=== PATIENT | female | born 1995 | race Caucasian/White ===

== ENCOUNTER 2018-10-23 01:15 | Emergency (ER) | payer OTHER, SELFPAY ==
--- NOTE | 2018-10-23 01:45 | ER ---
Nurse's Notes [facility] Name: Giana Costa Age: 23 yrs Sex: Female : 1995 Arrival Date: 10/23/2018 Time: 01:17 Bed Waiting Private MD: Diagnosis: ED Course: 10/23 01:17 Patient arrived in ED. am2 01:43 Patient's name was called from ER lobby. No response. Unable to locate patient. Will bb disposition as left without being seen by a provider. Administered Medications: No medications were administered Outcome: 01:44 Patient left the ED. bb Signatures: Subha Stubbs RN RN Nehal Blair am2
== END 2018-10-23 01:44 | disposition left against medical advice (07) ==
LOC: ER 01:15
DX: Z53.21 Procedure and treatment not carried out due to patient leaving prior to being seen by health care provider (principal)

== ENCOUNTER 2021-03-26 23:32 | Emergency (ER) | payer SELFPAY ==
--- NOTE | 2021-03-27 00:37 | EDPHYS ---
Physician Documentation [facility] Name: Giana Costa Age: 25 yrs Sex: Female : 1995 Arrival Date: 03/26/2021 Time: 23:34 Bed 24 Private MD: ED Physician Bari Cardozo HPI: 03/27 00:22 This 25 yrs old Female presents to ER via Ambulatory with complaints of Ankle kb Injury. 00:22 The patient has not recently seen a physician. kb 00:22 The patient presents with an injury, pain, swelling, tenderness. The complaints affect kb the left foot. Context: The problem was sustained at home, resulted from the patient tripping, Mechanism of Injury: Inversion the patient can fully bear weight, the patient is able to ambulate. Onset: The symptoms/episode began/occurred today. Modifying factors: The symptoms are alleviated by nothing, the symptoms are aggravated by movement. Associated signs and symptoms: Pertinent positives: swelling. Severity of symptoms: At their worst the symptoms were moderate, in the emergency department the symptoms are unchanged. The patient has not experienced similar symptoms in the past. RN COMPLEX CARE: 03/26 23:56 LMP 03/20/2021 bb Historical: - Allergies: 23:56 No Known Allergies; bb - Home Meds: 23:56 None [Active]; bb - PMHx: 23:56 None; bb - PSHx: 23:56 None; bb - Immunization history:: Adult Immunizations up to date. - Social history:: Smoking status: Patient denies any tobacco usage or history of. ROS: 03/27 00:20 Constitutional: Negative for fever, chills, and weight loss, Neuro: Negative for kb headache, weakness, numbness, tingling, and seizure. MS/extremity: Positive for ecchymosis, pain, swelling, tenderness, of the dorsum of left foot. Skin: Positive for ecchymosis, swelling, of the dorsum of left foot. Exam: 00:21 Constitutional: This is a well developed, well nourished patient who is awake, alert, kb and in no acute distress. Head/Face: Normocephalic, atraumatic. ENT: Moist Mucous membranes Respiratory: Respirations even and unlabored. No increased work of breathing, no retractions or nasal flaring. Skin: Warm, dry with normal turgor. Normal color. Neuro: Awake and alert, GCS 15, oriented to person, place, time, and situation. Moves all extremities. Normal gait. Psych: Awake, alert, with orientation to person, place and time. Behavior, mood, and affect are within normal limits. 00:21 Musculoskeletal/extremity: Extremities: grossly normal except: noted in the dorsum of left foot: ecchymosis, pain, swelling, tenderness, ROM: no acute changes, Pulses: Sensation intact. Weight bearing: able to fully bear weight. Vital Signs: 03/26 23:55 BP 121 / 81; Pulse 100; Resp 16 S; Temp 97.5(O); Pulse Ox 98% on R/A; Weight 94.35 kg bb (R); Height 5 ft. 7 in. (170.18 cm) (R); Pain 7/10; 23:55 Body Mass Index 32.58 (94.35 kg, 170.18 cm) bb MDM: 03/27 00:00 Patient medically screened. [facility] 00:20 Data reviewed: vital signs, nurses notes. Data interpreted: Pulse oximetry: on room air kb is 98 %. Interpretation: normal. Counseling: I had a detailed discussion with the patient and/or guardian regarding: the historical points, exam findings, and any diagnostic results supporting the discharge/admit diagnosis, radiology results, the need for outpatient follow up, a orthopedic surgeon, to return to the emergency department if symptoms worsen or persist or if there are any questions or concerns that arise at home. 03/27 00:01 Order name: Foot Left 3 View XRAY kb Administered Medications: No medications were administered Disposition Summary: 03/27/21 00:36 Discharge Ordered Location: Home kb Condition: Stable kb Diagnosis - Other sprain of left foot kb Followup: kb - With: Emergency Department - When: As needed - Reason: Worsening of condition Followup: kb - With: Private Physician - When: 2 - 3 days - Reason: Recheck today's complaints, Continuance of care, Re-evaluation by your physician Discharge Instructions: - Discharge Summary Sheet kb - Foot Sprain kb Forms: - Medication Reconciliation Form kb - Thank You Letter kb - Antibiotic Education kb - Work release form kb - Prescription Opioid Use kb Addendum: 03/30/2021 07:35 Co-signature as Attending Physician, Bari Cardozo MD I agree with the assessment and c schmidt plan of care. Signatures: Dispatcher [employer] EDFabiana Dye, RN GYN-C RN GYN-Ckb Bari Cardozo MD MD cha Ballard, Brenda, RN RN bb Corrections: (The following items were deleted from the chart) 03/26 23:57 23:56 PMHx: miscarriage (February 2015); bb lisa 03/27 00:19 03/26 23:57 Ankle Left 3 View+RAD.RAD.BRZ ordered. EDMS EDMS
--- NOTE | 2021-03-27 00:37 | ER ---
Nurse's Notes [facility] Name: Giana Costa Age: 25 yrs Sex: Female : 1995 Arrival Date: 03/26/2021 Time: 23:34 Bed 24 Private MD: Diagnosis: Other sprain of left foot Presentation: 03/26 23:55 Chief complaint: Patient states: she tripped and fell this morning injuring her left bb ankle which is swollen and painful denies LOC. Coronavirus screen: At this time, the client does not indicate any symptoms associated with coronavirus-19. Ebola Screen: No symptoms or risks identified at this time. Initial Sepsis Screen: Does the patient meet any 2 criteria? No. Patient's initial sepsis screen is negative. Does the patient have a suspected source of infection? No. Patient's initial sepsis screen is negative. Risk Assessment: Do you want to hurt yourself or someone else? Patient reports no desire to harm self or others. Onset of symptoms was March 26, 2021. 23:55 Method Of Arrival: Ambulatory bb 23:55 Acuity: MARY 4 bb Triage Assessment: 23:56 General: Appears in no apparent distress. uncomfortable, Behavior is calm, cooperative. bb Pain: Complains of pain in left ankle and foot Pain currently is 7 out of 10 on a pain scale. Neuro: Level of Consciousness is awake, alert, obeys commands, Oriented to person, place, time, situation. Cardiovascular: Capillary refill < 3 seconds Patient's skin is warm and dry. Respiratory: Respiratory effort is even, unlabored, Respiratory pattern is regular. GI: No signs and/or symptoms were reported involving the gastrointestinal system. Derm: Skin is pink, warm \T\ dry. Musculoskeletal: Capillary refill < 3 seconds, Reports pain in left ankle and foot. NURSE PRACTITIONER HOSPITALIST: 23:56 LMP 03/20/2021 bb Historical: - Allergies: 23:56 No Known Allergies; bb - Home Meds: 23:56 None [Active]; bb - PMHx: 23:56 None; bb - PSHx: 23:56 None; bb - Immunization history:: Adult Immunizations up to date. - Social history:: Smoking status: Patient denies any tobacco usage or history of. Screenin:58 Abuse screen: Denies threats or abuse. Nutritional screening: No deficits noted. bb Tuberculosis screening: No symptoms or risk factors identified. Fall Risk None identified. Assessment: 23:58 Reassessment: No changes from previously documented assessment. Patient is alert, bb oriented x 3, equal unlabored respirations, skin warm/dry/pink. see triage assessment. Vital Signs: 23:55 BP 121 / 81; Pulse 100; Resp 16 S; Temp 97.5(O); Pulse Ox 98% on R/A; Weight 94.35 kg bb (R); Height 5 ft. 7 in. (170.18 cm) (R); Pain 7/10; 23:55 Body Mass Index 32.58 (94.35 kg, 170.18 cm) bb ED Course: 23:34 Patient arrived in ED. cf2 23:52 Fab[facility] Jack [facility]C [facility]. kb 23:52 Bari Cardozo MD is Attending Physician. kb 23:56 Triage completed. bb 23:56 Arm band placed on Patient placed in an exam room, on a stretcher, on pulse oximetry. bb 23:58 Patient has correct armband on for positive identification. Bed in low position. Call bb light in reach. 07 00:00 Raymond Trivedi, RN is Primary Nurse. em 00:46 No provider procedures requiring assistance completed. Patient did not have IV access em during this emergency room visit. 01:23 Foot Left 3 View XRAY In Process Unspecified. EDMS Administered Medications: No medications were administered Outcome: 00:36 Discharge ordered by MD. kb 00:46 Discharged to home ambulatory. em 00:46 Condition: stable 00:46 Discharge instructions given to patient, Instructed on discharge instructions, follow up and referral plans. Demonstrated understanding of instructions, follow-up care. 00:47 Patient left the ED. em Signatures: Dispatcher [employer] EDMS Fabiana Jack FNP-C FNP-Ckb Munoz, Edgar RN CLAY em Subha Stubbs RN RN bb Estella Denney cf2 Corrections: (The following items were deleted from the chart) 03/26 23:57 23:56 PMHx: miscarriage (February 2015); lisa gonzalez
[2021-03-27 00:52] VITALS: BP 121/81; TEMP 97.5; O2SAT 98
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
== END 2021-03-27 00:47 | disposition home or self-care (01) ==
LOC: ER 23:32
DX: S93.692A Other sprain of left foot, initial encounter (principal); W01.0XXA Fall on same level from slipping, tripping and stumbling without subsequent striking against object, initial encounter; Y92.009 Unspecified place in unspecified non-institutional (private) residence as the place of occurrence of the external cause
CPT/HCPCS: 99283

== ENCOUNTER 2022-05-17 19:57 | Emergency (ER) | payer SELFPAY ==
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
[2022-05-17] MEDS ORDERED: CYCLOBENZAPRINE 10 MG TAB ONE (21:20)
[2022-05-17] MEDS ORDERED: predniSONE 20 MG TAB ONE (21:20)
[2022-05-17] MEDS ORDERED: FAMOTIDINE 20 MG TAB ONE (21:21)
[2022-05-17 23:03] VITALS: TEMP 98.1
[2022-05-17 23:05] VITALS: BP 112/64; O2SAT 98
== END 2022-05-17 21:56 | disposition home or self-care (01) ==
LOC: ER 19:57
DX: S46.111A Strain of muscle, fascia and tendon of long head of biceps, right arm, initial encounter (principal)
CPT/HCPCS: 99284; J7512

== ENCOUNTER 2023-02-27 15:51 | Emergency (ER) | payer OTHER, SELFPAY ==
--- OUTSIDE RECORDS SUMMARY | 2023-02-27 15:53 | XMS REPORT | Continuity of Care Document ---
:1995 Author Organization [facility] t Address [address] [place] [address] Care Team Providers Name Role Phone Phillip VALENTINE, [facility] Primary Care Physician [phone] Problems This patient has no known problems. Allergies, Adverse Reactions, Alerts This patient has no known allergies or adverse reactions. Medications Ordered Filled Start Stop Current Ordering Indication Dosage Frequency Signature Comments Components Source Medication Medication Date Date Medication? Clinician (SIG) Name Name TAKE 4 2021-09 No TABLETS BY 0-18 MOUTH 00:00: ONE DOSE 00 TAKE 1 2021-09 No TABLET BY 0-16 MOUTH EVERY 00:00: 6 HOURS 00 NEEDED Vital Signs Vital Name Observation Time Observation Value Comments Source Heart Rate 2022-07-08 15:03:00 67.00 /min Respiratory Rate 2022-07-08 15:03:00 BP Systolic 2022-07-08 15:03:00 109 mm[Hg] BP Diastolic 2022-07-08 15:03:00 71 mm[Hg] Weight Measured 2022-07-08 15:03:00 199.00 pounds Height Measured 2022-07-08 15:03:00 67.00 inches Body Temperature 2022-07-08 15:03:00 98.00 degrees Procedures This patient has no known procedures. Plan of Care Planned Activity Planned Date Details Comments Source Goal Plan of Care Note [code = 96480-8] Goal Plan of Care Note [code = 13307-8] Goal Plan of Care Note [code = 03096-3] Goal Plan of Care Note [code = 69747-9] Goal Plan of Care Note [code = 81690-5] Goal Plan of Care Note [code = 28255-3] Goal Plan of Care Note [code = 25399-3] Goal Plan of Care Note [code = 47263-5] Goal Plan of Care Note [code = 73122-5] Goal Plan of Care Note [code = 51198-2] Encounters Start End Encounter Admission Attending Care Care Encounter Source Date/Time Date/Time Type Type Clinicians Facility Department ID 2022-09-23 2022-09-23 Outpatient [facility] Cesario 15:20:08 15:20:08 [id number] F Pillow 2022-07-08 2022-07-08 Outpatient [facility] Cesario 14:53:45 14:53:45 [id number] F Pillow 2022-07-08 2022-07-08 Outpatient [id number] 00:00:00 00:00:00 Visit [id number] Results Test Description Test Time Test Comments Results Result Comments Source CT/NG, NAAT, URINE 2022-07-12 17:06:50 Test Item Value Reference Range Interpretation Comme nts GONORRHEA, NAAT NEGATIVE NEGATIVE IMPORTA NT NOTICE: SEE ANNOUNCEMENT AT (test code = [email or web address]://www.GageIn/Solartrec Note: 50029) Assay methodolo gy is nucleic acid amplification by transcriptio n mediated amplification (TMA) utilizing the A ptima Combo 2 Assay. CHLAMYDIA, NAAT NEGATIVE NEGATIVE IMPORTA NT NOTICE: SEE ANNOUNCEMENT AT (test code = https://wwwHenable/RocheBL HealthcarerineKit Note: 54121) Assay methodolo gy is nucleic acid amplification by transcriptio n mediated amplification (TMA) utilizing the A ptima Combo 2 Assay. UNLESS OTHERWISE INDIC ATED, ALL TESTING PERFORMED [facility] [employer] [address] [place] [id number] CLAM DREDGER: MAHENDRA FAIR M.D. CLIA NUMBER [id number] [place] [id number] VAGINAL PATHOGENS DNA [id number] 14:58:16 Test Item Value Reference Range Interpretation Comments ROSI SPECIES (test code = 98918) NEGATIVE NEGATIVE G. VAGINALIS (test code = 60440) POSITIVE NEGATIVE A T. VAGINALIS (test code = 75072) NEGATIVE NEGATIVE HIV 1/2 4TH GEN, RFLX [id number] 03:49:45 Test Item Value Reference Range Interpretation Comments HIV 1/2 4TH GEN, RFLX CONF (test NON-REACTIVE NON-REACTIVE code = 3514) HEPATITIS PANEL, [id number] 03:49:45 Test Item Value Reference Range Interpretation Comments HEPATITIS A IgM (test NON-REACTIVE NON-REACTIVE code = 25834) HEPATITIS B CORE IgM NON-REACTIVE NON-REACTIVE (test code = 4644) HEPATITIS B SURF AG NON-REACTIVE NON-REACTIVE (test code = 2739) HEPATITIS C ANTIBODY NON-REACTIVE NON-REACTIVE (test code = 4675) INTERPRETATION (NOTE) Hepatitis A HEPATITIS A: (test code sero logy shows no = 2552) evidence of acu te hepatitis A. INTERPRETATION (NOTE) Hepatitis B HEPATITIS B: (test code sero logy shows no = 64046) evidence of acu te hepatitis B and no indication of exposure to hepatitis B vir us in the previous [place] eight months. INTERPRETATION (NOTE) Hepatitis C HEPATITIS C: (test code sero logy shows no = 55292) evidence of exposure to hepatitisC viru s at this time. I t can take up to 12 months after exposure tothe hepatitis C vir us for antibodies to become detectab le in the blood in certain patient s. [id number] 03:17:23 Test Item Value Reference Range Interpretation Comments RPR RESULT (test code = NON-REACTIVE NON-REACTIVE 3501) RPR TITER (test code = 3500) NOT INDIC. TITER NOT INDIC.
[2023-02-27 16:40] LABS: Specific Gravity > 1.030 (1.005-1.030); Urine Bacteria None Seen /HPF (<20); Urine Bilirubin NEGATIVE (Negative); Urine Blood Negative (Negative); Urine Clarity Extremely Turbid (Clear); Urine Color Yellow (Yellow); Urine Glucose NEGATIVE (Negative); Urine Mucus 2+ /HPF (None Seen); Urine Protein TRACE (Negative); Urine RBC None Seen /HPF (None Seen); Urine Urobilinogen Normal (Normal); Urine pH 5.5 (5.0-7.0)
[2023-02-27 16:41] LABS: Specific Gravity 1.031 (1.005-1.030)
--- NOTE | 2023-02-27 16:46 | EDPHYS ---
Physician Documentation [facility] Name: Giana Costa Age: 27 yrs Sex: Female : 1995 Arrival Date: 02/27/2023 Time: 15:51 Bed 5 Private MD: ED Physician Jaya Gresham HPI: 02/27 16:15 This 27 yrs old Female presents to ER via Wheelchair with complaints of Thigh Pain. snw 16:15 The patient presents with pain, that is acute, tenderness. The complaints affect the snw medial aspect of left thigh. Context: The problem was sustained at home, resulted from an unknown cause, the patient can fully bear weight, the patient is able to ambulate. Onset: The symptoms/episode began/occurred acutely. Associated signs and symptoms: The patient has no apparent associated signs or symptoms. pt states she has had pain at a different site weekly x 1 year, when asked about an autoimmune problem or neuropathy, pt states she has just been "dealing" with it and has not seen anyone about a potential cause. 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 - Social history:: Smoking status: Patient denies any tobacco usage or history of. ROS: 16:14 Constitutional: Negative for fever, chills, and weight loss, Eyes: Negative for injury, snw pain, redness, and discharge, ENT: Negative for injury, pain, and discharge, Neck: Negative for injury, pain, and swelling, Cardiovascular: Negative for chest pain, palpitations, and edema, Respiratory: Negative for shortness of breath, cough, wheezing, and pleuritic chest pain, Abdomen/GI: Negative for abdominal pain, nausea, vomiting, diarrhea, and constipation, Back: Negative for injury and pain, : Negative for injury, bleeding, discharge, and swelling, Skin: Negative for injury, rash, and discoloration, Neuro: Negative for headache, weakness, numbness, tingling, and seizure, Psych: Negative for depression, anxiety, suicide ideation, homicidal ideation, and hallucinations. 16:14 MS/extremity: Positive for pain, of the medial aspect of left thigh. Exam: 16:14 Constitutional: This is a well developed, well nourished patient who is awake, alert, snw and in no acute distress. Head/Face: Normocephalic, atraumatic. Eyes: Pupils equal round and reactive to light, extra-ocular motions intact. Lids and lashes normal. Conjunctiva and sclera are non-icteric and not injected. Cornea within normal limits. Periorbital areas with no swelling, redness, or edema. ENT: Nares patent. No nasal discharge, no septal abnormalities noted. Tympanic membranes are normal and external auditory canals are clear. Oropharynx with no redness, swelling, or masses, exudates, or evidence of obstruction, uvula midline. Mucous membranes moist. Neck: Trachea midline, no thyromegaly or masses palpated, and no cervical lymphadenopathy. Supple, full range of motion without nuchal rigidity, or vertebral point tenderness. No Meningismus. Chest/axilla: Normal chest wall appearance and motion. Nontender with no deformity. No lesions are appreciated. 16:14 Respiratory: Lungs have equal breath sounds bilaterally, clear to auscultation and percussion. No rales, rhonchi or wheezes noted. No increased work of breathing, no retractions or nasal flaring. Abdomen/GI: Soft, non-tender, with normal bowel sounds. No distension or tympany. No guarding or rebound. No evidence of tenderness throughout. Back: No spinal tenderness. No costovertebral tenderness. Full range of motion. Skin: Warm, dry with normal turgor. Normal color with no rashes, no lesions, and no evidence of cellulitis. Neuro: Awake and alert, GCS 15, oriented to person, place, time, and situation. Cranial nerves II-XII grossly intact. Motor strength 5/5 in all extremities. Sensory grossly intact. Cerebellar exam normal. Normal gait. Psych: Awake, alert, with orientation to person, place and time. Behavior, mood, and affect are within normal limits. 16:14 Cardiovascular: Rate: tachycardic, Rhythm: regular. 16:14 Musculoskeletal/extremity: Exam is negative for Vital Signs: 15:57 BP 121 / 77; Pulse 105; Resp 16; Pulse Ox 97% on R/A; Weight 89.81 kg; Height 5 ft. 7 iw in. ; Pain 710; 15:57 Body Mass Index 31.01 (89.81 kg, 170.18 cm) iw 15:57 Pain Scale: Adult iw MDM: 15:56 Patient medically screened. snw 16:45 Differential diagnosis: tendonitis, bursitis, neuropathy. Data reviewed: vital signs, snw nurses notes. Counseling: I had a detailed discussion with the patient and/or guardian regarding: the historical points, exam findings, and any diagnostic results supporting the discharge/admit diagnosis, lab results, to return to the emergency department if symptoms worsen or persist or if there are any questions or concerns that arise at home. Special discussion: Based on the history and exam findings, there is no indication for further emergent testing or inpatient evaluation. I discussed with the patient/guardian the need to see the primary care provider for further evaluation of the symptoms. I discussed with the patient/guardian the need to see the life skills worker for further evaluation of the symptoms. 02/27 15:59 Order name: Urine W/Microscopic (UAM); Complete Time: 16:42 snw 02/27 15:59 Order name: PREGU; Complete Time: 16:42 snw Administered Medications: 17:00 Drug: predniSONE PO 20 mg Route: PO; aa5 17:14 Follow up: Response: No adverse reaction aa5 17:14 Not Given (Pt was not able to swallow medication, Pt states "I can only take very small aa5 pills" ): Neurontin PO 300 mg PO once Disposition: 17:35 Co-signature as Attending Physician, Jaya Gresham MD I reviewed the patient's care rn provided by the Advanced Practice Provider and agree with the diagnosis and treatment plan. Disposition Summary: 02/27/23 16:45 Discharge Ordered Location: Home snw Condition: Stable snw Diagnosis - Polyneuropathy, unspecified snw Followup: snw - With: Emergency Department - When: As needed - Reason: Worsening of condition Followup: snw - With: Private Physician - When: 1 - 2 days - Reason: Recheck today's complaints, Continuance of care, Re-evaluation by your physician Discharge Instructions: - Discharge Summary Sheet snw - Neuropathic Pain snw Forms: - Medication Reconciliation Form snw - Thank You Letter snw - Antibiotic Education snw - Prescription Opioid Use snw - Work release form aa5 Prescriptions: - Neurontin 300 mg Oral Capsule - take 1 capsule by ORAL route At bedtime; 10 capsule; Refills: 0, Product snw Selection Permitted Signatures: Dispatcher [employer] Sailaja Faria, PURIFYING PLANT OPERATOR-C PURIFYING PLANT OPERATOR-Csnw Brandy Plasencia, RN Jaya Pereyra MD MD rn Calderon, Audri, RN RN aa5
--- NOTE | 2023-02-27 16:46 | ER ---
Nurse's Notes [facility] Name: Giana Costa Age: 27 yrs Sex: Female : 1995 Arrival Date: 02/27/2023 Time: 15:51 Bed 5 Private MD: Diagnosis: Polyneuropathy, unspecified Presentation: 02/27 15:55 Chief complaint: Patient states: left inner thigh pain, feels like muscle strain, iw denies injury , she just woke up with the pain. Coronavirus screen: At this time, the client does not indicate any symptoms associated with coronavirus-19. Ebola Screen: Patient negative for fever greater than or equal to 101.5 degrees Fahrenheit, and additional compatible Ebola Virus Disease symptoms Patient denies exposure to infectious person. Patient denies travel to an Ebola-affected area in the 21 days before illness onset. No symptoms or risks identified at this time. Initial Sepsis Screen: Does the patient meet any 2 criteria? No. Patient's initial sepsis screen is negative. Does the patient have a suspected source of infection? No. Patient's initial sepsis screen is negative. Risk Assessment: Do you want to hurt yourself or someone else? Patient reports no desire to harm self or others. Onset of symptoms was February 27, 2023. 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 - Social history:: Smoking status: Patient denies any tobacco usage or history of. Screenin:05 [facility] ED Fall Risk Assessment (Adult) History of falling in the last 3 months, vg1 including since admission No falls in past 3 months (0 pts). Abuse screen: Denies threats or abuse. Denies injuries from another. Nutritional screening: No deficits noted. Tuberculosis screening: No symptoms or risk factors identified. Assessment: 16:05 General: Appears in no apparent distress. uncomfortable, Behavior is cooperative. Pain: vg1 Complains of pain in medial aspect of left thigh Pain currently is 7 out of 10 on a pain scale. Pain began this morning Aggravated by repositioning, weight bearing. Cardiovascular: Patient's skin is warm and dry. Derm: Skin is pink, warm \\T\\ dry. Musculoskeletal: Circulation, motion, and sensation intact. 17:14 Reassessment: Patient is alert, oriented x 3, equal unlabored respirations, skin aa5 warm/dry/pink. Vital Signs: 15:57 BP 121 / 77; Pulse 105; Resp 16; Pulse Ox 97% on R/A; Weight 89.81 kg; Height 5 ft. 7 iw in. ; Pain 7/10; 15:57 Body Mass Index 31.01 (89.81 kg, 170.18 cm) iw 15:57 Pain Scale: Adult iw ED Course: 15:53 Patient arrived in ED. ts1 15:56 Sailaja Hall F[facility]-C [facility] snw 15:56 Jaya Gresham MD is Attending Physician. snw 15:56 Triage completed. iw 16:05 Carla Anne, RN is Primary Nurse. vg1 16:05 Patient has correct armband on for positive identification. Bed in low position. Call vg1 light in reach. Side rails up X 1. 16:05 No provider procedures requiring assistance completed. vg1 17:14 Patient did not have IV access during this emergency room visit. aa5 Administered Medications: 17:00 Drug: predniSONE PO 20 mg Route: PO; aa5 17:14 Follow up: Response: No adverse reaction aa5 17:14 Not Given (Pt was not able to swallow medication, Pt states "I can only take very small aa5 pills" ): Neurontin PO 300 mg PO once Medication: 16:05 VIS not applicable for this client. vg1 Outcome: 16:45 Discharge ordered by . snw 17:14 Discharged to home via wheelchair, with friend. aa5 17:14 Condition: stable 17:14 Discharge instructions given to patient, Instructed on discharge instructions, follow up and referral plans. medication usage, Demonstrated understanding of instructions, follow-up care, medications, Prescriptions given X 1. 17:14 Patient left the ED. aa5 Signatures: Sailaja Hall FNP-C BRUSH MAKER-Nickw Brandy Plasencia RN RN iw Radha Moody RN RN aa5 Carla Anne RN RN vg1 Metzger, Marielos, PAS PAS ts1
[2023-02-27] MEDS ORDERED: GABAPENTIN 300 MG CAP ONE (16:47)
[2023-02-27] MEDS ORDERED: predniSONE 20 MG TAB ONE (16:47)
[2023-02-27 17:20] VITALS: BP 121/77; O2SAT 97
== END 2023-02-27 17:14 | disposition home or self-care (01) ==
LOC: ER 15:51
DX: G62.9 Polyneuropathy, unspecified (principal)
CPT/HCPCS: 81001; 81025; 99283; J7512